=== PATIENT | male | born 1985 | race African-American/Black ===

== ENCOUNTER 2018-01-18 17:02 | Inpatient (IN) | payer SELFPAY ==
[2018-01-18 18:14] LABS: Mean Corpuscular HGB CONC 31.5 g/dL (32.0-36.0); Mean Corpuscular Hemoglobin 27.9 pg (27.0-31.0); Mean Corpuscular Volume 88.5 fL (78.0-98.0); Mean Platelet Volume 9.3 fL (7.4-10.4); Platelet Count 138 thou/uL (130-400); RBC Distribution Width 14.2 % (11.5-14.5); Red Blood Cell (RBC) Count 6.11 mill/uL (4.70-6.10); White Blood Cell (WBC) Count 4.8 thou/uL (4.8-10.8)
--- NOTE | 2018-01-18 18:32 | RAD ---
CHEST ONE VIEW: 01/18/18 HISTORY: Chest pain. Dyspnea. FINDINGS: No comparison. The cardiac silhouette is magnified and enlarged. Pulmonary vasculature slightly engorged. Mediastinu m is midline. No lobar consolidation or evidence of pneumothorax. IMPRESSION: Cardiomegaly. Borderline pulmonary vascular congestion. POS: H
[2018-01-18 18:34] LABS: ALT (SGPT) 18 U/L (8-55); AST (SGOT) 19 U/L (5-34); Albumin 3.7 g/dL (3.5-5.0); Alkaline Phosphatase 79 U/L (40-150); Anion Gap 13 mmol/L (10-20); BUN (Urea Nitrogen) 12 mg/dL (8.9-20.6); Bilirubin, Total 0.9 mg/dL (0.2-1.2); CK (CPK) 90 U/L (30-200); Calc. Creatinine Clearance 0 mL/min (70-130); Carbon Dioxide 31 mmol/L (22-29); Chloride 102 mmol/L (98-107); Estimated GFR-MDRD 81; Globulin 3.4 g/dL (2.4-3.5); Glucose 85 mg/dL (70-105); Potassium 4.7 mmol/L (3.5-5.1); Protein, Total 7.1 g/dL (6.0-8.3); Sodium 141 mmol/L (136-145)
[2018-01-18 18:36] LABS: CKMB 2.6 ng/mL (0-6.6); Troponin I 0.012 ng/mL (< 0.028)
[2018-01-18 18:39] LABS: Band 5 % (5-11); Lymphocytes 17 % (21-51); MDiff Complete? YES; Monocytes 4 % (0-10); Neutrophil 73 % (42-75); PLT Morphology Comment Appears Adequate; Reactive Lymphocytes 1 % (0-10)
--- NOTE | 2018-01-18 20:36 | ULT ---
VENOUS DUPLEX SONOGRAM BILATERAL LOWER EXTREMITIES: 01/18/18 HISTORY: Bilateral leg pain and edema. FINDINGS: Each common femoral vein and greater saphenous junction were evaluated along with the femoral, deep f emoral, popliteal, and posterior tibial veins. On the left, the distal portion of the femoral vein an d posterior tibial vein were not well visualized. On the right, posterior tibial vein not well visual ized. Good color and spectral doppler flow throughout the visualized deep venous structures. IMPRESSION: No sonographic evidence of DVT within either lower extremity. POS: PEPPER
[2018-01-18] MEDS ORDERED: Furosemide 40 MG/4 ML VIAL SLOW IVP STA (22:13)
[2018-01-18] MEDS ORDERED: Ondansetron HCl/PF 4 MG/2 ML Vial IVP PRN (22:17)
[2018-01-18] MEDS ORDERED: Acetaminophen 325 MG TAB PO PRN (22:17)
[2018-01-18] MEDS ORDERED: Furosemide 40 MG/4 ML VIAL ONE (22:29)
[2018-01-18] MEDS ORDERED: Nitroglycerin 2% Ointment 1 INCH/1 GM Packet ONE (22:29)
[2018-01-18 23:09] LABS: Troponin I Less than 0.010 ng/mL (< 0.028)
[2018-01-18] MEDS: Nitroglycerin 2% Ointment 1 INCH/1 GM Packet TOP SCH (23:53)
--- NOTE | 2018-01-19 00:39 | HP ---
PRIMARY CARE PHYSICIAN: [place] call. CODE STATUS: FULL CODE. TIME OF EVALUATION: 10:15 p.m. CHIEF COMPLAINT: Shortness of breath. HISTORY OF PRESENT ILLNESS: This is a 32-year-old male patient with no significant past medical hist ory, not taking medication at home. Patient came to the hospital after having gradually worsening le g swelling and shortness of breath. The symptoms started for about 1 month now, no clear triggers, n o alleviating factors. Patient reported the shortness of breath is worsened with activity and improv ed with rest. Symptoms are reported as severe. Patient was also found to have high blood pressure i n the ER. REVIEW OF SYSTEMS: Constitutional: No fever or chills or generalized weakness. Respiratory: Patie nt has some cough. No sputum production. Shortness of breath as mentioned in the HPI. Cardiovascul ar: No chest pain, palpitations, shortness of breath. Gastrointestinal: No nausea, vomiting, diarr hea, or abdominal pain. PERITONEAL DIALYSIS REGISTERED NURSE: No dizziness, headache, or feeling lightheaded. Genitourinary: No bu rning on urination. Extremities: Bilateral leg swelling. All other systems were reviewed and are n egative except for the findings mentioned above. PAST MEDICAL HISTORY: Negative. SOCIAL HISTORY: Patient reported no alcohol, no drugs. No smoking history. PSYCHIATRIC HISTORY: No previous psychiatric history. FAMILY HISTORY: The patient had father with CHF, hypertension, diabetes, mother with PSVT. DRUG ALLERGIES: No known drug allergies. REPORTED MEDICATIONS: None. PHYSICAL EXAMINATION: VITAL SIGNS: On presentation, blood pressure 157/103 with heart rate 98, respiratory rate was 26, te mperature 98.7, oxygen saturation 91. GENERAL APPEARANCE: The patient is alert, oriented, not in any acute distress. HEENT: Normocephalic, conjunctivae. Moist oral mucosa. Anicteric. NECK: No JVD. RESPIRATORY: Bilateral air entry. Bilateral rales. No wheezing. Symmetric expansion. CARDIOVASCULAR: Patient has normal rate, regular rhythm. No murmurs, no gallop. Bilateral leg ronnie a with atrophic changes in both legs. ABDOMEN: Soft. Normal bowel sounds. MUSCULOSKELETAL: Baseline range of motion and strength. No tenderness. SKIN: Warm and intact. No pallor, no rash, no redness. Peripheral pulses are present. Capillary r efill seems to be intact. NEUROLOGIC: Baseline sensory. No evidence of any new focal weakness. Baseline speech. Cranial ner ves seem to be intact. PSYCHIATRIC: Patient is in good mood. No anxiety, oriented. No optimal judgment. IMAGING: EKG was reviewed and showed normal sinus rhythm with nonspecific T-wave abnormalities. Toni tricular rate 99, CO 158, QRS 106, QT corrected 487. No evidence of any acute ischemic event, regula r changes in V1-V3. EKG has been reviewed by myself. The chest x-ray was reviewed. Patient has car diomegaly, borderline pulmonary vascular congestion. The venogram was done. The patient has no sono graphic evidence of DVT in the lower extremities. LABORATORY: Reviewed. The patient has white count 4.8, hemoglobin 17, MCV 88, platelet count 138. Chemistry: Sodium 141, potassium 4.7, chloride 102, carbon dioxide 31, anion gap 13, BUN 12, creatin ine 1.06, GFR 81, glucose 85, calcium 9.0. AST, ALT was negative. Troponin has been negative x2. B eta natriuretic peptide 234. Serum total protein 7.1. ASSESSMENT AND PLAN: The patient will be placed in the hospital with following further medical probl em: 1. Possible new-onset congestive heart failure. Patient has bilateral leg edema, worsening shortnes s of breath. Chest x-ray positive for vascular congestion, elevated beta natriuretic peptide, patien t restarted on Lasix, nitro paste, we will continue the rest of medications for congestive heart fail ure as well as patient becomes more compensated. We will add LEONOR inhibitors, aspirin. 2. Uncontrolled hypertension, patient presenting with elevated blood pressure, he reported having no history of hypertension, we will reconcile medication has been started on LEONOR inhibitors, nitro past e, Lasix IV, since patient has never taken medication, we will add medications one by one. 3. Morbidly obese, advise loss weight. 4. Deep venous thrombosis prophylaxis. 5. Acute respiratory failure needing nasal cannula to keep saturation of 90.
[2018-01-19 01:35] LABS: Troponin I 0.014 ng/mL (< 0.028)
[2018-01-19 05:22] LABS: BUN (Urea Nitrogen) 12 mg/dL (8.9-20.6); Calc. Creatinine Clearance 271 mL/min (70-130); Calcium 9.7 mg/dL (7.8-10.44); Estimated GFR-MDRD 81; Glucose 109 mg/dL (70-105)
[2018-01-19] MEDS: Nitroglycerin 2% Ointment 1 INCH/1 GM Packet TOP SCH ×4 (05:24→22:26)
[2018-01-19] MEDS: Furosemide 40 MG/4 ML VIAL SLOW IVP SCH ×2 (05:25→13:27)
[2018-01-19 05:31] LABS: Anion Gap 10 mmol/L (10-20); Carbon Dioxide 39 mmol/L (22-29); Chloride 99 mmol/L (98-107); Potassium 4.8 mmol/L (3.5-5.1); Sodium 143 mmol/L (136-145)
[2018-01-19 06:41] LABS: Band 6 % (5-11); Eosinophils 1 % (0-10); Lymphocytes 23 % (21-51); MDiff Complete? YES; Mean Corpuscular HGB CONC 30.4 g/dL (32.0-36.0); Mean Corpuscular Hemoglobin 27.3 pg (27.0-31.0); Mean Corpuscular Volume 89.7 fL (78.0-98.0); Mean Platelet Volume 9.1 fL (7.4-10.4); Monocytes 16 % (0-10); Neutrophil 54 % (42-75); Platelet Count 141 thou/uL (130-400); RBC Distribution Width 14.3 % (11.5-14.5); Red Blood Cell (RBC) Count 6.22 mill/uL (4.70-6.10); White Blood Cell (WBC) Count 4.9 thou/uL (4.8-10.8)
[2018-01-19] MEDS: Enoxaparin Sodium 40 MG/0.4 ML SYRINGE SC SCH (08:57)
[2018-01-19] MEDS ORDERED: Lisinopril 20 MG TAB PO SCH (09:00)
--- NOTE | 2018-01-19 11:18 | CON-2 ---
DATE OF CONSULTATION: 01/19/2018 CHIEF COMPLAINT: Shortness of breath. HISTORY OF PRESENT ILLNESS: Patient is a 32-year-old -[place] male with no reported past medical history that presents after 2 months of worsening shortness of breath associated with back pain and lower extremity edema. He states the lower extremity edema is worse on the left and it does resolve overnight when he elevates his legs. The patient reports that, 2 years ago, he went to [place] and was able to walk all day long with no problem. However , over the last 2 months, he has now decreased his activity level to only being able to walk a short distance without being winded. Patient works as a warehouse manual labor worker and states that he had no problem completing his tasks up until 2 months ago. The patient had no other complaints today. PAST SURGICAL HISTORY: None reported. SOCIAL HISTORY: The patient reports social alcohol use every once in a while. No tobacco or drug history. FAMILY HISTORY: The patient's father had CHF, hypertension, and diabetes. The patient's mother has had some sort of heart disease as well as a stroke history. KNOWN ALLERGIES: No known drug allergies. REPORTED MEDICATIONS: None. REVIEW OF SYSTEMS: A 12-point review of systems was, otherwise, negative unless listed above in the HPI. PHYSICAL EXAMINATION: VITAL SIGNS: Blood pressure 183/127, temperature 98.2, pulse was 105, respirations were 30, oxygen saturation was 94% on room air. GENERAL APPEARANCE: The patient is alert and oriented, not in acute distress. He is an obese man. HEENT: Normocephalic, atraumatic. NECK: No JVD. RESPIRATORY: Decreased breath sounds, likely due to body habitus. No wheezing present. CARDIOVASCULAR: Distant heart sounds, normal rate and regular rhythm. No murmurs appreciated. Does have bilateral leg edema with chronic venous stasis changes to lower extremities. ABDOMEN: Soft, normal bowel sounds, and obese. MUSCULOSKELETAL: Full range of motion in all joints. No strength deficits. SKIN: Warm and dry. No pallor and no rash. Peripheral pulses could not be palpated well at lower extremities. NEUROLOGIC: No focal deficits. GCS of 15. Cranial nerves grossly intact. PSYCHIATRIC: No anxiety noted. The patient has good judgment and is agreeable to and is cooperative with exam. LABORATORY EVALUATION: White blood cell count 4.9, hemoglobin of 17.0, hematocrit 55.8, platelet count 141. Sodium of 143, potassium 4.8, chloride 99 , carbon dioxide 39, anion gap 10, BUN 12, creatinine 1.26, glucose 109, calcium 97. He has had troponins of less than 0.01 and 0.014 and brain natriuretic peptide of 224.7. RADIOGRAPHIC FINDINGS: The patient had a chest x-ray that showed cardiomegaly with borderline pulmonary vascular congestion and a lower extremity venogram that showed no sonographic evidence of DVT within either lower extremity. ASSESSMENT AND PLAN: 1. Likely new onset congestive heart failure. Unknown etiology. The patient is symptomatic with bilateral leg edema and worsening shortness of breath. Patient has an elevated BNP, although not impressively elevated. The patient was started on Lasix by the primary team with good response to his symptoms. He had a diuresis of 1550 mL overnight. The patient had an LEONOR inhibitor added and an aspirin as well. We will likely be starting a beta souleymane to help control his disease. We also have an echocardiogram pending at this time to see what the ejection fraction and to further determine type or if there is any congestive heart failure present. 2. Hypertension, no self-reported history. The patient states that he has never been to his physician and has no history of hypertension. The patient has been started on lisinopril. We have also added on a beta souleymane along with the diuretic use and we will titrate medications as needed. 3. Morbidly obese. The patient weighs 500 pounds. He said that he graduated high school at roughly 350 pounds. He has been advised that he lose weight. Otherwise, his chronic conditions will only continue to deteriorate. 4. Human immunodeficiency virus. The patient is not truthful about his diagnosis while his family is around. However, nurses have medication reconciliation found that he was on Genvoya at home, a triple therapy for human immunodeficiency virus. We will continue that at this time. 5. His deep venous thrombus prophylaxis currently is at Lovenox 40 mg subcu, that is not appropriate for his body habitus and we will be increasing his deep venous thrombosis prophylaxis. 6. Obesity hypoventilation syndrome. The patient likely does have a component of this, as he is a carbon dioxide retainer with carbon dioxide levels being 31 and 39 respectively. The patient will likely need supplemental oxygen and would benefit from oxygen at night, most likely as well as a sleep study as an outpatient. We will continue to give oxygen supplementation as needed. DISPOSITION: Stable. We will continue current plan of care and await the echo results. This patient was seen and examined with Dr. Wander Estrada, the Cardiology attending , and she is in agreement with this plan. PRESTON
[2018-01-19] MEDS ORDERED: hydrALAZINE 20 MG/ML VIAL SLOW IVP PRN (11:26)
--- NOTE | 2018-01-19 13:45 | EKG ---
Test Reason : Blood Pressure : / mmHG Vent. Rate : 099 BPM Atrial Rate : 099 BPM P-R Int : 158 ms QRS Dur : 106 ms QT Int : 380 ms P-R-T Axes : 062 -17 006 degrees QTc Int : 487 ms Normal sinus rhythm Nonspecific T wave abnormality Prolonged QT Abnormal ECG Confirmed by DENI LAUREN ([id number]), videotape editor GLO MATA ([id number]) on 01/19/2018 1:44:54 PM Referred By: Confirmed By:DENI LAUREN
--- NOTE | 2018-01-19 14:41 | ADD-CON ---
ADDENDUM: DATE OF ADMISSION: 01/18/2018 DATE OF CONSULTATION: 01/19/2018 Please refer to the notes already dictated by the Family Practice resident on the service, Dr. Oz Camarillo. HISTORY OF PRESENT ILLNESS: This is a very pleasant 32-year-old gentleman who has had no previous ca rdiac history. He does have morbid obesity. He presented to the hospital after complaining of some lower extremity edema and also some shortness of breath ongoing for the last couple of months. He wa s found to have significant hypertension and chest x-ray does show what appears to be some cardiomega ly. However, due to the large chest area, this may be just due to the distance from the actual films to the heart and may not be true cardiomegaly but given his symptoms, he certainly may have a decrea se in left ventricular systolic function. He did have some history in the past of a fall. There was some congestive heart failure, hypertension, diabetes. This gentleman does not have any history of diabetes that we are aware of, but does have significant hypertension that he was unaware of it and h as not been treated for in the past and he denies any chest pain. He just mainly complains of the sh ortness of breath and lower extremity edema. He remains very active. 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 For his past medical history, social history, family history, review of systems, and allergies, pleas e refer to the notes dictated by the Family Practice resident, Dr. Mi. We have discussed the polly e in detail and I would agree with his assessment and plan as he is outlined already. The EKG shows a sinus rhythm with no acute changes. He did have some mild tachycardia. IMPRESSION: 1. New onset congestive heart failure until proven otherwise, uncertain etiology. We will obtain th e echocardiogram. This was certainly give more insight into whether or not the ejection fraction is significantly compromised or whether or not this may be due to some other etiology such as the morbid obesity and the hypertension. His BNP was not significantly elevated, it was only 224. His cardiac enzymes are negative. I am uncertain exactly of the etiology of the edema. Certainly he has respon ded well to the diuretics. 2. Hypertension. This will definitely need to be brought under better control. He will need to hav e routine followup for the hypertension, which could be done by a primary care physician or a family practice physician if we do not have any Cardiology etiology of his lower extremity edema. At this t marcos, he has been placed on lisinopril and I will also start him on a beta souleymane to assist in loweri ng the blood pressure as well as the heart rate. 3. Morbid obesity. He will need to have a dietary consultation and will certainly need to get some of the weight off. 4. Some history of possible human immunodeficiency virus. Apparently, the family is unaware that th e patient may have human immunodeficiency virus. This is due to question by the nurses as they notic ed he was taking medications that for what appeared to be human immunodeficiency virus and apparently he did admit to having human immunodeficiency virus. PHYSICAL EXAMINATION: GENERAL: Reveals a morbidly obese gentleman. VITAL SIGNS: Blood pressure is 141/94, heart rate was 103, but regular. Respiratory rate was about 30-35. He is afebrile. HEENT: Shows the head to be normocephalic and atraumatic. Carotid pulses are present. CHEST: Clear to auscultation. I cannot hear any rales, rhonchi or wheezing at this time. CARDIOVASCULAR: Reveals a mild tachycardia, but no significant murmurs, heaves, thrills, bruits or r ubs. ABDOMEN: Morbid obesity. Unable to palpate any tenderness or masses. EXTREMITIES: Showed 1-2+ lower extremity edema, mainly 1+ apparently has improved since his admissio n with the diuresis. I believe the right lower extremity was more edematous than the left. Pulses a re present. NEUROLOGIC: The patient appears to be fully intact. At this time, we will continue the medications for the congestive heart failure as listed. 1. Congestive heart failure. 2. Hypertension. 3. Edema. 4. Morbid obesity. Further recommendations will depend on the echocardiogram. As noted by the resident, he has some hyp erventilation syndrome, perhaps and may need to have a sleep study done if he is able to comply with the prescription for the CPAP mask if indicated. Please note that he does have increased risk for DV Ts and will be placed on prophylactic Lovenox, but obviously this is somewhat too lower level for his morbid obesity of the 40 mg and this will be increased.
[2018-01-19] MEDS ORDERED: Carvedilol 3.125 MG TAB PO SCH (18:00)
--- NOTE | 2018-01-19 23:26 | PDOC.PN ---
- Subjective Encounter Start Date: 01/19/18 Encounter Start Time: 10:30 Patient seen and examined for new onset CHF. SOB improving. No new complaints. No overnight events - Objective Resuscitation Status: Resuscitation Status FULL:Full Resuscitation MAR Reviewed: Yes Vital Signs & Weight: Vital Signs (12 hours) Temp Pulse Resp BP Pulse Ox 01/19/18 19:27 93 L 01/19/18 19:25 99.7 F H 111 H 26 H 136/77 86 L 01/19/18 15:53 98.5 F 101 H 33 H 144/100 H 95 01/19/18 11:35 97.8 F 103 H 35 H 141/94 H 97 01/19/18 11:26 97 Weight Weight 496 lb 9.6 oz I&O: 01/18/18 01/19/18 01/20/18 06:59 06:59 06:59 Intake Total 450 960 Output Total 2000 1700 Balance -1550 -740 Result Diagrams: 01/19/18 04:36 01/19/18 04:36 EKG Reviewed by me: Yes (Tele SR) Phys Exam - Physical Examination Constitutional: NAD Respiratory: no wheezing, no rhonchi Scat rales at bases Cardiovascular: RRR, no rub no heaves/pulsations Gastrointestinal: soft, non-tender, no distention, positive bowel sounds Musculoskeletal: edema present Neurological: non-focal, moves all 4 limbs Psychiatric: A&O x 3 Dx/Plan - Plan DVT proph w/lovenox, DVT proph w/SCDs IMPRESSION: 1. SOB prob due to new onset CHF 2. Morbid Obesity BMI 57.4 3. ?IRIS 4. HTN 5. HIV / CKD 2 PLAN: Add fluid rest Cont diuresis Cont ACEI Await Echo Tele monitoring Review of Systems - Review of Systems Constitutional: negative: fever, chills, sweats, weakness, malaise, other Gastrointestinal: negative: Nausea, Vomiting, Abdominal Pain, Diarrhea, Constipation, Melena, Hematochezia, Other - Medications/Allergies Allergies/Adverse Reactions: Allergies Allergy/AdvReac Type Severity Reaction Status Date / Time No Known Drug Allergies Allergy Verified 01/19/18 00:02 Medications: Current Medications Acetaminophen (Tylenol) 650 mg PO Q4H PRN PRN Reason: Headache/Fever or Pain Aspirin (Aspirin Chewable) 81 mg PO DAILY [facility] Last Admin: 01/19/18 08:57 Dose: 81 mg Carvedilol (Coreg) 3.125 mg PO BID-[facility] Enoxaparin Sodium (Lovenox) 40 mg SC 0900 [facility] Last Admin: 01/19/18 08:57 Dose: 40 mg Furosemide (Lasix) 40 mg SLOW IVP 0600,1400 [facility] Last Admin: 01/19/18 13:27 Dose: 40 mg Hydralazine HCl (Apresoline) 10 mg SLOW IVP Q4H PRN PRN Reason: SBP Greater Than 180 Lisinopril (Zestril) 20 mg PO DAILY [facility] Last Admin: 01/19/18 08:57 Dose: 20 mg Nitroglycerin (Nitro-Bid 2% Ointment) 0.5 inch TOP 0430,1030,1630,2230 [facility] Last Admin: 01/19/18 22:26 Dose: 0.5 inch Ondansetron HCl (Zofran) 4 mg IVP Q6H PRN PRN Reason: Nausea/Vomiting Pneumococcal 13-Valent Conj Vacc (Prevnar) 0.5 ml IM .ONCE ONE Stop: 01/20/18 09:01
[2018-01-20] MEDS: Nitroglycerin 2% Ointment 1 INCH/1 GM Packet TOP SCH (05:39)
[2018-01-20] MEDS: Furosemide 40 MG/4 ML VIAL SLOW IVP SCH ×2 (05:40→16:46)
[2018-01-20] MEDS ORDERED: Carvedilol 3.125 MG TAB PO SCH (08:00)
--- NOTE | 2018-01-20 08:27 | PDOC.CTH ---
<Peggy Whitt - Last Filed: 01/20/18 08:24> Cardiology Progress Note - Subjective The pt seen and examined. No overnight events. No cardiac complaints. Per family, his BLE edema has been improving already with current medication treatment. - Objective Vital Signs Temp Pulse Resp BP Pulse Ox 01/20/18 07:38 98.3 F 103 H 17 139/97 H 98 01/20/18 04:32 94 L 01/20/18 04:28 98.4 F 115 H 28 H 121/73 79 L 01/20/18 03:13 94 L 01/20/18 00:00 98.3 F 105 H 20 137/92 H 95 01/19/18 23:52 109 H 20 Weight 493 lb 8 oz 01/19/18 01/20/18 01/21/18 06:59 06:59 06:59 Intake Total 450 1170 Output Total 2000 3050 Balance -1550 -1880 - Physical Examination General/Neuro: alert & oriented x3 Neck: no JVD present Heart: RRR Abdomen: soft Extremities: other: - Telemetry Telemetry Rhythm: SR 90-100s - Labs Result Diagrams: 01/19/18 04:36 01/19/18 04:36 Troponin/CKMB CK-MB (CK-2) 2.6 ng/mL (0-6.6) 01/18/18 17:23 Troponin I 0.014 ng/mL (< 0.028) 01/19/18 00:59 - Assessment/Plan 1. New onset CHF - SOB and edema have been improving with lasix 40mg IV BID, bblocker, and LEONOR. Cont. to monitor. 2. Tachycardia - increase Coreg from 3.125mg to 6.25mg BID and decrease Lisinopril from 20mg to 10mg qd. Cont. to monitor on tele 3. HTN - Improved 4. BLE edema - improving with Lasix 40mg IV BID. May change to PO form. 5. Morbid Obesity - weight management education given to the pt and family 6. Possible IRIS - may need sleep study as outpt. MAR reviewed Review of Systems - Review of Systems Constitutional: reports: no symptoms reported EENTM: reports: no symptoms reported Respiratory: reports: no symptoms reported Cardiac (ROS): reports: no symptoms reported ABD/GI: reports: no symptoms reported : reports: no symptoms reported Musculoskeletal: reports: no symptoms reported <Lizzette Estrada - Last Filed: 01/20/18 13:55> Cardiology Progress Note - Objective Vital Signs Temp Pulse Resp BP Pulse Ox 01/20/18 11:49 98.4 F 99 17 133/89 94 L 01/20/18 08:00 98.3 F 103 H 17 01/20/18 07:38 98.3 F 103 H 17 139/97 H 98 01/20/18 04:32 94 L 01/20/18 04:28 98.4 F 115 H 28 H 121/73 79 L 01/20/18 03:13 94 L Weight 493 lb 8 oz 01/19/18 01/20/18 01/21/18 06:59 06:59 06:59 Intake Total 450 1170 Output Total 1999 3050 Balance -1550 -1880 - Labs Result Diagrams: 01/19/18 04:36 01/20/18 10:37 Troponin/CKMB CK-MB (CK-2) 2.6 ng/mL (0-6.6) 01/18/18 17:23 Troponin I 0.014 ng/mL (< 0.028) 01/19/18 00:59 - Assessment/Plan Pt. seen and eval. by me. I agree with the A/P by the YARD PIPE GRADER. The echo indicates an EF of 45-50%. The RV appears dilated. The edema has improved. He continues to diurese. Chest clear. RRR. he needs to lose about 200 #. He says that he has back pain and can not walk very fart. I suggest he try water exercises.
[2018-01-20] MEDS ORDERED: Carvedilol 6.25 MG TAB PO SCH (08:30)
[2018-01-20] MEDS ORDERED: Prevnar 13-Val Conj/PF 0.5 ML SYRINGE IM ONE (09:00)
[2018-01-20] MEDS: Lisinopril 10 MG TAB PO SCH (09:18)
[2018-01-20] MEDS: Enoxaparin Sodium 40 MG/0.4 ML SYRINGE SC SCH (09:18)
[2018-01-20 11:04] LABS: BUN (Urea Nitrogen) 13 mg/dL (8.9-20.6); Calc. Creatinine Clearance 300 mL/min (70-130); Calcium 9.2 mg/dL (7.8-10.44); Estimated GFR-MDRD Greater than 90; Glucose 124 mg/dL (70-105); Magnesium 1.9 mg/dL (1.6-2.6)
[2018-01-20 11:14] LABS: Anion Gap 13 mmol/L (10-20); Carbon Dioxide 35 mmol/L (22-29); Chloride 94 mmol/L (98-107); Potassium 3.9 mmol/L (3.5-5.1); Sodium 138 mmol/L (136-145)
--- NOTE | 2018-01-20 13:23 | PDOC.PN ---
- Subjective Encounter Start Date: 01/20/18 Encounter Start Time: 10:30 Patient seen and examined for CHF. SOB improving. No new complaints. No overnight events - Objective Resuscitation Status: Resuscitation Status FULL:Full Resuscitation MAR Reviewed: Yes Vital Signs & Weight: Vital Signs (12 hours) Temp Pulse Resp BP Pulse Ox 01/20/18 11:49 98.4 F 99 17 133/89 94 L 01/20/18 08:00 98.3 F 103 H 17 01/20/18 07:38 98.3 F 103 H 17 139/97 H 98 01/20/18 04:32 94 L 01/20/18 04:28 98.4 F 115 H 28 H 121/73 79 L 01/20/18 03:13 94 L Weight Weight 493 lb 8 oz I&O: 01/19/18 01/20/18 01/21/18 06:59 06:59 06:59 Intake Total 450 1170 Output Total 1999 3050 Balance -1550 -1880 Result Diagrams: 01/19/18 04:36 01/20/18 10:37 EKG Reviewed by me: Yes (Tele SR) Phys Exam - Physical Examination Constitutional: NAD Respiratory: no wheezing, no rhonchi Cardiovascular: RRR, no rub Gastrointestinal: soft, positive bowel sounds Musculoskeletal: edema present Neurological: moves all 4 limbs Dx/Plan - Plan DVT proph w/lovenox, DVT proph w/SCDs IMPRESSION: 1. SOB prob due to new onset CHF 2. Morbid Obesity BMI 57.4 3. ?IRIS 4. HTN 5. HIV / CKD 2 / Chronic low back pain PLAN: Cont IV Lasix 40 BID Daily BMP Cont Lisinopril and Coreg Resume HIV meds Await Echo DC NTG patch Cont Autopap HS Sleep study as outpt Tele monitoring Review of Systems - Review of Systems Constitutional: negative: fever, chills, sweats, weakness, malaise, other Gastrointestinal: negative: Nausea, Vomiting, Abdominal Pain, Diarrhea, Constipation, Melena, Hematochezia, Other - Medications/Allergies Allergies/Adverse Reactions: Allergies Allergy/AdvReac Type Severity Reaction Status Date / Time No Known Drug Allergies Allergy Verified 01/19/18 00:02 Medications: Current Medications Acetaminophen (Tylenol) 650 mg PO Q4H PRN PRN Reason: Headache/Fever or Pain Aspirin (Aspirin Chewable) 81 mg PO DAILY [facility] Last Admin: 01/20/18 09:18 Dose: 81 mg Carvedilol (Coreg) 6.25 mg PO BID-[facility] Enoxaparin Sodium (Lovenox) 40 mg SC 0900 [facility] Last Admin: 01/20/18 09:18 Dose: 40 mg Furosemide (Lasix) 40 mg SLOW IVP 0600,1400 [facility] Last Admin: 01/20/18 05:40 Dose: 40 mg Hydralazine HCl (Apresoline) 10 mg SLOW IVP Q4H PRN PRN Reason: SBP Greater Than 180 Lisinopril (Zestril) 10 mg PO DAILY [facility] Last Admin: 01/20/18 09:18 Dose: 10 mg (Elviteg/Cob/Emtri/Tenof Alafen [ Genvoya Tablet] 1 Tab) 1 tab PO DAILY [facility] Ondansetron HCl (Zofran) 4 mg IVP Q6H PRN PRN Reason: Nausea/Vomiting
[2018-01-20] MEDS: Carvedilol 6.25 MG TAB PO SCH (16:47)
[2018-01-21 05:52] LABS: Hemoglobin 17.4 g/dL (14.0-18.0); Platelet Count 141 thou/uL (130-400)
[2018-01-21 06:07] LABS: Anion Gap 14 mmol/L (10-20); BUN (Urea Nitrogen) 14 mg/dL (8.9-20.6); Calc. Creatinine Clearance 339 mL/min (70-130); Calcium 9.5 mg/dL (7.8-10.44); Carbon Dioxide 31 mmol/L (22-29); Chloride 94 mmol/L (98-107); Estimated GFR-MDRD Greater than 90; Glucose 92 mg/dL (70-105); Magnesium 2.1 mg/dL (1.6-2.6); Potassium 5.2 mmol/L (3.5-5.1); Sodium 134 mmol/L (136-145)
[2018-01-21] MEDS: Furosemide 40 MG/4 ML VIAL SLOW IVP SCH ×2 (06:15→13:55)
[2018-01-21] MEDS ORDERED: (Elviteg/Cob/Emtri/Tenof Alafen [Genvoya Tablet] 1 TAB) PO SCH (09:00)
[2018-01-21] MEDS: Enoxaparin Sodium 40 MG/0.4 ML SYRINGE SC SCH (09:28)
[2018-01-21] MEDS: Carvedilol 6.25 MG TAB PO SCH ×2 (09:28→17:02)
[2018-01-21] MEDS: Lisinopril 10 MG TAB PO SCH (09:28)
--- NOTE | 2018-01-21 17:13 | PDOC.CTH ---
Cardiology Progress Note - Subjective He is doing better. He is on room air and O2 sats are in the mid 70's. - Objective Vital Signs Temp Pulse Pulse Pulse Resp BP BP 01/21/18 17:02 132/74 01/21/18 16:10 16 01/21/18 15:38 98.1 F 92 18 01/21/18 11:21 98.3 F 99 14 01/21/18 09:37 103 H 103 H 132/97 H 01/21/18 08:26 98.3 F 92 14 BP BP BP Pulse Ox Pulse Ox Pulse Ox 01/21/18 17:02 01/21/18 16:10 97 01/21/18 15:38 116/59 L 92 L 01/21/18 11:21 119/62 99 01/21/18 09:37 127/91 H 94 L 92 L 01/21/18 08:26 132/92 H 95 Weight 493 lb 8 oz 01/20/18 01/21/18 01/22/18 06:59 06:59 06:59 Intake Total 1170 480 Output Total 3050 2900 Balance -1880 -2420 - Physical Examination General/Neuro: alert & oriented x3, NAD Neck: no JVD present Lungs: unlabored respirations, other: (distant heart sounds. ) Heart: RRR Abdomen: NT/ND Extremities: + edema B (1+) - Telemetry Telemetry Rhythm: S Tach - Labs Result Diagrams: 01/21/18 04:55 01/21/18 04:55 Troponin/CKMB CK-MB (CK-2) 2.6 ng/mL (0-6.6) 01/18/18 17:23 Troponin I 0.014 ng/mL (< 0.028) 01/19/18 00:59 - Assessment/Plan 1. New onset CHF systolic. 2. Tachycardia 3. HTN . 4. Morbid Obesity 5. IRIS PLAN: - Continue IV lasix. - Continue BB, ACEI. - Continue Oxygen supplementation.
[2018-01-21 18:06] VITALS: BMI 55.3
--- NOTE | 2018-01-21 22:09 | PDOC.PN ---
- Subjective Encounter Start Date: 01/21/18 Encounter Start Time: 10:30 Patient seen and examined for CHF. No new complaints. No overnight events - Objective Resuscitation Status: Resuscitation Status FULL:Full Resuscitation MAR Reviewed: Yes Vital Signs & Weight: Vital Signs (12 hours) Temp Pulse Resp BP BP BP Pulse Ox 01/21/18 19:00 98.1 F 98 18 116/63 92 L 01/21/18 17:02 132/74 01/21/18 16:10 16 97 01/21/18 15:38 98.1 F 92 18 116/59 L 92 L 01/21/18 11:21 98.3 F 99 14 119/62 99 Weight Weight 479 lb I&O: 01/20/18 01/21/18 01/22/18 06:59 06:59 06:59 Intake Total 2542 759 3465 Output Total 3050 2900 1220 Balance -1880 -2420 -220 Result Diagrams: 01/21/18 04:55 01/21/18 04:55 EKG Reviewed by me: Yes (Tele SR) Phys Exam - Physical Examination Constitutional: NAD Respiratory: no wheezing, no rhonchi Bibasilar rales Cardiovascular: RRR, no rub Gastrointestinal: soft, positive bowel sounds Musculoskeletal: edema present Psychiatric: A&O x 3 Dx/Plan - Plan DVT proph w/SCDs IMPRESSION: 1. Acute systolic CHF 2. Morbid Obesity BMI 57.4 3. ?IRIS 4. HTN 5. HIV / CKD 2 / Chronic low back pain / Hyperkalemia PLAN: Cont diuresis BMP in AM Cont Lisinopril and Coreg Resume HIV meds Echo reviewed Cont Autopap HS Sleep study as outpt Review of Systems - Review of Systems Constitutional: negative: fever, chills, sweats, weakness, malaise, other Gastrointestinal: negative: Nausea, Vomiting, Abdominal Pain, Diarrhea, Constipation, Melena, Hematochezia, Other - Medications/Allergies Allergies/Adverse Reactions: Allergies Allergy/AdvReac Type Severity Reaction Status Date / Time No Known Drug Allergies Allergy Verified 01/19/18 00:02 Medications: Current Medications Acetaminophen (Tylenol) 650 mg PO Q4H PRN PRN Reason: Headache/Fever or Pain Aspirin (Aspirin Chewable) 81 mg PO DAILY [facility] Last Admin: 01/21/18 09:28 Dose: 81 mg Carvedilol (Coreg) 6.25 mg PO BID-[facility] Last Admin: 01/21/18 17:02 Dose: 6.25 mg Enoxaparin Sodium (Lovenox) 40 mg SC 0900 [facility] Last Admin: 01/21/18 09:28 Dose: 40 mg Furosemide (Lasix) 40 mg SLOW IVP 0600,1400 [facility] Last Admin: 01/21/18 13:55 Dose: 40 mg Hydralazine HCl (Apresoline) 10 mg SLOW IVP Q4H PRN PRN Reason: SBP Greater Than 180 Lisinopril (Zestril) 10 mg PO DAILY [facility] Last Admin: 01/21/18 09:28 Dose: 10 mg (Elviteg/Cob/Emtri/Tenof Alafen [ Genvoya Tablet] 1 Tab) 1 tab PO DAILY [facility] Ondansetron HCl (Zofran) 4 mg IVP Q6H PRN PRN Reason: Nausea/Vomiting
[2018-01-22 05:46] LABS: Anion Gap 12 mmol/L (10-20); BUN (Urea Nitrogen) 19 mg/dL (8.9-20.6); Calc. Creatinine Clearance 310 mL/min (70-130); Calcium 9.7 mg/dL (7.8-10.44); Carbon Dioxide 36 mmol/L (22-29); Chloride 92 mmol/L (98-107); Estimated GFR-MDRD Greater than 90; Glucose 95 mg/dL (70-105); Potassium 4.4 mmol/L (3.5-5.1); Sodium 136 mmol/L (136-145)
[2018-01-22] MEDS: Furosemide 40 MG/4 ML VIAL SLOW IVP SCH ×2 (06:20→13:44)
[2018-01-22] MEDS: Lisinopril 10 MG TAB PO SCH (09:03)
[2018-01-22] MEDS: Carvedilol 6.25 MG TAB PO SCH ×2 (09:03→16:10)
[2018-01-22] MEDS: Enoxaparin Sodium 40 MG/0.4 ML SYRINGE SC SCH (09:04)
--- NOTE | 2018-01-22 11:43 | PDOC.PN ---
- Subjective Encounter Start Date: 01/22/18 Encounter Start Time: 10:30 Patient seen and examined for CHF exacerbation. Feeling better. No new complaints. Overnight events noted - Objective Resuscitation Status: Resuscitation Status FULL:Full Resuscitation MAR Reviewed: Yes Vital Signs & Weight: Vital Signs (12 hours) Temp Pulse Pulse Pulse Resp BP BP 01/22/18 09:03 129/79 01/22/18 08:30 98 101 H 136/86 01/22/18 07:35 98.3 F 89 16 01/22/18 03:31 98.1 F 92 18 01/22/18 02:47 16 BP BP BP Pulse Ox Pulse Ox Pulse Ox 01/22/18 09:03 01/22/18 08:30 124/79 92 L 95 01/22/18 07:35 131/81 91 L 01/22/18 03:31 123/84 93 L 01/22/18 02:47 91 L Weight Weight 479 lb I&O: 01/21/18 01/22/18 01/23/18 06:59 06:59 06:59 Intake Total 480 1240 Output Total 2900 1920 Balance -2420 -680 Result Diagrams: 01/21/18 04:55 01/22/18 04:30 EKG Reviewed by me: Yes (Tele SR) Phys Exam - Physical Examination Constitutional: NAD Respiratory: no wheezing, no rhonchi Bibasilar rales Cardiovascular: RRR, no rub Gastrointestinal: soft, non-tender, positive bowel sounds Musculoskeletal: edema present (improving) Neurological: moves all 4 limbs Dx/Plan - Plan out of bed/ambulate, DVT proph w/lovenox, DVT proph w/SCDs IMPRESSION/PLAN: 1. Acute systolic CHF - Wt 479 lb from 496 lb Cont Lasix 40 mg IV BID Cont Lisinopril/Coreg BMP in AM 2. Morbid Obesity BMI 57.4 Counselled 3. ?IRIS/Obesity hypoventilation syndrome Cont Autopap HS Add Cont pulse Ox Sleep study as outpt 4. HTN Cont Lisinopril/Coreg 5. HIV - Home med not in formulary - waiting for family to bring 6. CKD 2 / Chronic low back pain / Hyperkalemia Review of Systems - Review of Systems Respiratory: SOB with Excertion. negative: Cough, Dry, Shortness of Breath, Hemoptysis, Pleuritic Pain, Sputum, Wheezing Gastrointestinal: negative: Nausea, Vomiting, Abdominal Pain, Diarrhea, Constipation, Melena, Hematochezia, Other - Medications/Allergies Allergies/Adverse Reactions: Allergies Allergy/AdvReac Type Severity Reaction Status Date / Time No Known Drug Allergies Allergy Verified 01/19/18 00:02 Medications: Current Medications Acetaminophen (Tylenol) 650 mg PO Q4H PRN PRN Reason: Headache/Fever or Pain Aspirin (Aspirin Chewable) 81 mg PO DAILY [facility] Last Admin: 01/22/18 09:04 Dose: 81 mg Carvedilol (Coreg) 6.25 mg PO BID-[facility] Last Admin: 01/22/18 09:03 Dose: 6.25 mg Enoxaparin Sodium (Lovenox) 40 mg SC 0900 [facility] Last Admin: 01/22/18 09:04 Dose: 40 mg Furosemide (Lasix) 40 mg SLOW IVP 0600,1400 [facility] Last Admin: 01/22/18 06:20 Dose: 40 mg Hydralazine HCl (Apresoline) 10 mg SLOW IVP Q4H PRN PRN Reason: SBP Greater Than 180 Lisinopril (Zestril) 10 mg PO DAILY [facility] Last Admin: 01/22/18 09:03 Dose: 10 mg (Elviteg/Cob/Emtri/Tenof Alafen [ Genvoya Tablet] 1 Tab) 1 tab PO DAILY [facility] Ondansetron HCl (Zofran) 4 mg IVP Q6H PRN PRN Reason: Nausea/Vomiting
--- NOTE | 2018-01-22 17:09 | PDOC.CTH ---
Cardiology Progress Note - Subjective No new issues. Continues to desat without oxygen. - Objective Vital Signs Temp Pulse Pulse Pulse Resp BP BP 01/22/18 16:08 98.5 F 97 18 01/22/18 11:40 98.2 F 97 18 01/22/18 09:03 129/79 01/22/18 08:30 98 101 H 136/86 01/22/18 07:35 98.3 F 89 16 BP BP BP Pulse Ox Pulse Ox Pulse Ox 01/22/18 16:08 132/61 96 01/22/18 11:40 118/57 L 96 01/22/18 09:03 01/22/18 08:30 124/79 92 L 95 01/22/18 07:35 131/81 91 L Weight 479 lb 01/21/18 01/22/18 01/23/18 06:59 06:59 06:59 Intake Total 480 1240 Output Total 2900 1920 Balance -2420 -680 - Physical Examination General/Neuro: alert & oriented x3, NAD Neck: no JVD present Lungs: CTA, unlabored respirations Heart: RRR Abdomen: NT/ND Extremities: + edema B (1+) - Telemetry Telemetry Rhythm: NSR - Labs Result Diagrams: 01/21/18 04:55 01/22/18 04:30 Troponin/CKMB CK-MB (CK-2) 2.6 ng/mL (0-6.6) 01/18/18 17:23 Troponin I 0.014 ng/mL (< 0.028) 01/19/18 00:59 - Assessment/Plan 1. New onset CHF systolic. 2. Tachycardia 3. HTN . 4. Morbid Obesity 5. IRIS PLAN: - Switch to PO lasix. - Continue BB, ACEI. - Continue Oxygen supplementation, likely he will need home O2.
[2018-01-23 06:06] LABS: BUN (Urea Nitrogen) 19 mg/dL (8.9-20.6); Calc. Creatinine Clearance 280 mL/min (70-130); Calcium 9.7 mg/dL (7.8-10.44); Estimated GFR-MDRD 87; Glucose 101 mg/dL (70-105); Magnesium 2.1 mg/dL (1.6-2.6)
[2018-01-23 06:16] LABS: Anion Gap 15 mmol/L (10-20); Carbon Dioxide 37 mmol/L (22-29); Chloride 92 mmol/L (98-107); Potassium 4.3 mmol/L (3.5-5.1); Sodium 140 mmol/L (136-145)
[2018-01-23] MEDS ORDERED: Sodium Chloride 0.9% 10 ML ONE (08:02)
[2018-01-23] MEDS: Lisinopril 10 MG TAB PO SCH (09:00)
[2018-01-23] MEDS: Carvedilol 6.25 MG TAB PO SCH ×2 (09:00→16:09)
[2018-01-23] MEDS: Furosemide 40 MG TAB PO SCH ×2 (09:00→16:09)
[2018-01-23] MEDS: Enoxaparin Sodium 40 MG/0.4 ML SYRINGE SC SCH (09:01)
--- NOTE | 2018-01-23 22:09 | PDOC.PN ---
- Subjective Encounter Start Date: 01/23/18 Encounter Start Time: 09:00 Patient seen and examined for CHF exacerbation. No new complaints. No overnight events - Objective Resuscitation Status: Resuscitation Status FULL:Full Resuscitation MAR Reviewed: Yes Vital Signs & Weight: Vital Signs (12 hours) Temp Pulse Resp BP BP Pulse Ox 01/23/18 20:11 99.0 F 100 18 92 L 01/23/18 19:49 99.0 F 100 18 119/65 92 L 01/23/18 16:09 118/72 01/23/18 16:00 98.9 F 97 18 118/72 93 L 01/23/18 12:00 96.5 F L 96 18 107/58 L 94 L Weight Weight 480 lb 8 oz I&O: 01/22/18 01/23/18 01/24/18 06:59 06:59 06:59 Intake Total 1240 1360 1090 Output Total 1920 1650 975 Balance -680 -290 115 Result Diagrams: 01/21/18 04:55 01/23/18 04:45 EKG Reviewed by me: Yes (Tele SR) Phys Exam - Physical Examination Constitutional: NAD Respiratory: no wheezing, no rhonchi Bibasilar rales Cardiovascular: RRR, no rub Gastrointestinal: soft, positive bowel sounds Musculoskeletal: no edema Neurological: moves all 4 limbs Dx/Plan - Plan DVT proph w/lovenox, DVT proph w/SCDs IMPRESSION/PLAN: 1. Acute systolic CHF - Wt 480 lb from 496 lb Cont Lasix 40 mg PO BID Cont Lisinopril/Coreg BMP in AM 2. Morbid Obesity BMI 57.4 Counselled 3. ?IRIS/Obesity hypoventilation syndrome Cont Autopap HS Sleep study as outpt 4. HTN Cont Lisinopril/Coreg at current dose 5. HIV - Home med not in formulary - waiting for family to bring 6. CKD 2 / Chronic low back pain 7. Hyperkalemia - resolved Review of Systems - Review of Systems Respiratory: SOB with Excertion. negative: Cough, Dry, Shortness of Breath, Hemoptysis, Pleuritic Pain, Sputum, Wheezing Cardiovascular: negative: chest pain, palpitations, orthopnea, paroxysmal nocturnal dyspnea, edema, light headedness, other - Medications/Allergies Allergies/Adverse Reactions: Allergies Allergy/AdvReac Type Severity Reaction Status Date / Time No Known Drug Allergies Allergy Verified 01/19/18 00:02 Medications: Current Medications Acetaminophen (Tylenol) 650 mg PO Q4H PRN PRN Reason: Headache/Fever or Pain Aspirin (Aspirin Chewable) 81 mg PO DAILY [facility] Last Admin: 01/23/18 09:00 Dose: 81 mg Carvedilol (Coreg) 6.25 mg PO BID-[facility] Last Admin: 01/23/18 16:09 Dose: 6.25 mg Enoxaparin Sodium (Lovenox) 40 mg SC 0900 [facility] Last Admin: 01/23/18 09:01 Dose: 40 mg Furosemide (Lasix) 40 mg PO 0900,1400 [facility] Last Admin: 01/23/18 16:09 Dose: 40 mg Hydralazine HCl (Apresoline) 10 mg SLOW IVP Q4H PRN PRN Reason: SBP Greater Than 180 Lisinopril (Zestril) 10 mg PO DAILY [facility] Last Admin: 01/23/18 09:00 Dose: 10 mg (Elviteg/Cob/Emtri/Tenof Alafen [ Genvoya Tablet] 1 Tab) 1 tab PO DAILY [facility] Ondansetron HCl (Zofran) 4 mg IVP Q6H PRN PRN Reason: Nausea/Vomiting
[2018-01-24 07:48] LABS: Anion Gap 14 mmol/L (10-20); BUN (Urea Nitrogen) 18 mg/dL (8.9-20.6); Calc. Creatinine Clearance 302 mL/min (70-130); Calcium 9.8 mg/dL (7.8-10.44); Carbon Dioxide 37 mmol/L (22-29); Chloride 93 mmol/L (98-107); Estimated GFR-MDRD Greater than 90; Glucose 88 mg/dL (70-105); Potassium 4.3 mmol/L (3.5-5.1); Sodium 140 mmol/L (136-145)
[2018-01-24] MEDS: Enoxaparin Sodium 40 MG/0.4 ML SYRINGE SC SCH (08:38)
[2018-01-24] MEDS: Carvedilol 6.25 MG TAB PO SCH ×2 (08:38→16:53)
[2018-01-24] MEDS: Lisinopril 10 MG TAB PO SCH (08:39)
[2018-01-24] MEDS: Furosemide 40 MG TAB PO SCH ×2 (08:39→14:23)
--- NOTE | 2018-01-24 10:50 | PDOC.CTH ---
Cardiology Progress Note - Subjective Pt. seen and eval. He denies complaints.He is still SOB with exertion. I am suspicious that he may have suffered a pulmonary embolus. He is on Lovenox and may need detention OAC. - Objective Vital Signs Temp Pulse Resp BP BP Pulse Ox 01/24/18 08:39 141/80 H 01/24/18 08:38 141/80 H 01/24/18 07:29 97.5 F L 91 18 141/80 H 98 01/24/18 04:00 97.6 F 94 16 117/77 117 H Weight 478 lb 12.8 oz 01/23/18 01/24/18 01/25/18 06:59 06:59 06:59 Intake Total 1360 1570 Output Total 1650 1375 Balance -290 195 - Physical Examination General/Neuro: alert & oriented x3 Neck: no JVD present Lungs: CTA Heart: RRR Abdomen: other: (morbid obesity) Extremities: other: (edema improved. The left lower leg still has 1+ edema.) - Labs Result Diagrams: 01/21/18 04:55 01/24/18 06:18 Troponin/CKMB CK-MB (CK-2) 2.6 ng/mL (0-6.6) 01/18/18 17:23 Troponin I 0.014 ng/mL (< 0.028) 01/19/18 00:59 Labs: O/W CBC wnl, O/W BMP wnl, CKMB, troponin, no biomarkers today - Assessment/Plan 1. CHF: diastolic dysfunction. This may be related to his morbid obesity and sleep apnea. He has not been compliant with the CPAP mask that was tried. He also does not comply with PT. 2. morbid obesity. needs to lose more than 100#. 3. respiratory compromise. I am suspicious that he may have suffered a pulm. embolus at some recent time. The only possibility would be to try a V/Q scan to determine if there are obvious defects. He is too heavy for the CT scanner. I suggest he stay on chronic OAC. 4. Sleep Apnea. He has a CPAP mask here in the hospital but does not wear it as directed.
[2018-01-24 18:57] VITALS: BP 120/71; TEMP 98
--- NOTE | 2018-01-25 04:04 | DIS ---
DATE OF ADMISSION: 01/18/2018 DATE OF DISCHARGE: 01/24/2018 DISCHARGE DIAGNOSES: 1. Acute systolic congestive heart failure. 2. Morbid obesity. 3. Obstructive sleep apnea. 4. Hypoventilation obesity syndrome. 5. Hypertension. 6. Chronic kidney disease. 7. Hyperkalemia. HISTORY OF PRESENT ILLNESS: This patient is a 32-year-old male with significant morbid obesity who p resented with the complaint of progressive worsening shortness of breath and peripheral edema. Patie nt was noted to be hypoxic with exertion. He was noted to have cardiomegaly and some borderline pulm onary vascular congestion as well as peripheral edema on his physical exam. HOSPITAL COURSE: The patient was admitted to the hospital and started on IV diuresis. He was seen i n consultation by Cardiology and an echocardiogram was obtained. Echocardiogram was somewhat challen ging because of the patient's body habitus, but the interpretation is that the EF appeared to be at l east 45-50% and the left ventricle appeared to be dilated. The patient is diuresed well with the IV Lasix. He was placed on a beta souleymane, LEONOR inhibitor, supplemental oxygen and continued diuresis th at the patient's edema improved. His breathing improved and he was able to ambulate. He still had s ome mild hypoxia with exertion. Dr. Estrada, in followup, felt that the patient may have in fact had a recent pulmonary embolus accounting for some of his symptoms. However, given his body habitus, we we re unable to do the workup as he was too large for the imaging tables. It was recommended that the p atient remain on the anticoagulation for 3 months to treat it empirically. The patient himself felt that he had some type of lower back problem and when that was being aggravated, it was causing him to be more short of breath. He had made an appointment with a chiropractor and felt that if he can get that fixed that his shortness of breath would be substantially improved. PHYSICAL EXAMINATION: VITAL SIGNS: On the day of discharge, temperature is 98.1, pulse 92, BP 114/68, respirations 18. He is 93-96% O2 sat on room air. With exertion on room air, he did drop as low as 86, but recovered qu ickly with rest back to the 90s. HEART: Regular rate and rhythm. LUNGS: Diminished. ABDOMEN: Benign. EXTREMITIES: Still appear to have some edema with some chronic skin changes due to chronic stasis, d ermatitis, and edema. The patient believes they appeared to be at his baseline normal. DISCHARGE INSTRUCTIONS: Disposition: The patient is eager to be discharged to home. We discussed o tonie at length. The patient does not have benefits to cover oxygen therapy; however, he has the opt ion to pursue that renting it. I discussed this with case management. They will make the patient aw are of the option and give him information so that he can pursue that. The patient felt like he was doing fairly well without it and was not sure he would pursue it. The patient was also counseled at length regarding the fact that his obesity is significantly negatively impacting his overall health a nd impacting his current admission situation as well. Activity level as tolerated, heart healthy t. He will be on Coreg 6.25 mg b.i.d., Lasix 40 mg daily, lisinopril 10 mg daily, potassium 10 mEq d aily, Eliquis 5 mg 2 p.o. b.i.d. for 7 days and 1 p.o. b.i.d. and continue his Genvoya tablets. Ilda ent is also strongly encouraged to establish with a PCP and he should follow up here should he have a ny problems prior to the time of establishing the PCP.
== END 2018-01-24 19:31 | disposition home or self-care (01) | DRG 291 ==
LOC: ERS 17:02 → 2SW 22:59 → OBSVTOIN 01-20 10:26 → 2NO 01-20 18:06
PROVIDERS: ADMIT Hospitalist; ATTEND Hospitalist
DX: I13.0 Hypertensive heart and chronic kidney disease with heart failure and stage 1 through stage 4 chronic kidney disease, or unspecified chronic kidney disease (principal); J96.00 Acute respiratory failure, unspecified whether with hypoxia or hypercapnia; I50.21 Acute systolic (congestive) heart failure; Z68.43 Body mass index [BMI] 50.0-59.9, adult; E66.2 Morbid (severe) obesity with alveolar hypoventilation; E87.5 Hyperkalemia; N18.2 Chronic kidney disease, stage 2 (mild); Z21 Asymptomatic human immunodeficiency virus [HIV] infection status; M54.5 Low back pain; G89.29 Other chronic pain; R00.0 Tachycardia, unspecified; Z83.3 Family history of diabetes mellitus; Z82.49 Family history of ischemic heart disease and other diseases of the circulatory system
CPT/HCPCS: 36415; 71045; 80048; 80053; 82550; 82553; 83735; 83880; 84484; 85014; 85018; 85025; 85049; 90471; 90670; 93005; 93306; 93798; 93970; 94660; 94760; 96374; A4216; G0009; J1650; J1940

== ENCOUNTER 2018-06-28 13:33 | Emergency (ER) | payer OTHER, SELFPAY ==
--- NOTE | 2018-06-28 14:31 | RAD ---
LUMBAR SPINE THREE VIEWS: History: Low back pain. FINDINGS: There are five lumbar type vertebrae. Pedicles are intact. Leftward convex rotatory scoliotic curvatu re. Reversal of the normal lordotic curvature on the frontal view. Disc space narrowing and gas disc phenomenon at the L3-4 and L4-5 levels. Minimal degenerative retrolisthesis at these levels. Prominen t osteophytosis of the lower facets. Minimal anterior wedging of T12 with appearance of a chronic pro cess. IMPRESSION: Prominent degenerative changes of the lumbar spine. No acute compression fracture demonstrated. POS: [facility]
[2018-06-28 14:58] LABS: Mean Corpuscular HGB CONC 29.7 g/dL (32.0-36.0); Mean Corpuscular Hemoglobin 27.2 pg (27.0-31.0); Mean Corpuscular Volume 91.7 fL (78.0-98.0); Mean Platelet Volume 9.8 fL (7.4-10.4); Platelet Count 151 thou/uL (130-400); RBC Distribution Width 15.1 % (11.5-14.5); Red Blood Cell (RBC) Count 6.63 mill/uL (4.70-6.10); White Blood Cell (WBC) Count 6.9 thou/uL (4.8-10.8)
[2018-06-28 15:07] LABS: ALT (SGPT) 22 U/L (8-55); AST (SGOT) 27 U/L (5-34); Albumin 3.9 g/dL (3.5-5.0); Alkaline Phosphatase 93 U/L (40-150); Anion Gap 15 mmol/L (10-20); BUN (Urea Nitrogen) 16 mg/dL (8.9-20.6); Bilirubin, Total 1.3 mg/dL (0.2-1.2); Calc. Creatinine Clearance 0 mL/min (70-130); Calcium 9.4 mg/dL (7.8-10.44); Carbon Dioxide 29 mmol/L (22-29); Chloride 101 mmol/L (98-107); Estimated GFR-MDRD 84; Globulin 3.7 g/dL (2.4-3.5); Glucose 90 mg/dL (70-105); Potassium 4.7 mmol/L (3.5-5.1); Protein, Total 7.6 g/dL (6.0-8.3); Sodium 140 mmol/L (136-145)
[2018-06-28 15:08] LABS: Anisocytosis SLIGHT = 6-15 cells (100X) (0-5/hpf); Band 2 % (5-11); Lymphocytes 13 % (21-51); MDiff Complete? YES; Monocytes 8 % (0-10); Neutrophil 74 % (42-75); Platelet Morphology Comment Appears Adequate; Poikilocytosis SLIGHT = 6-15 cells (100X) (0-5/hpf); Reactive Lymphocytes 3 % (0-10)
--- NOTE | 2018-06-28 15:47 | RAD ---
CHEST 1 VIEW: Date: 06/28/18 HISTORY: Chest pain. Syncope. COMPARISON: 01/18/18. FINDINGS: Motion artifact obscures detail. Cardiac silhouette is magnified and enlarged. Pulmonary vasculature is engorged. No lobar consolidation or gross pneumothorax. IMPRESSION: Cardiomegaly and borderline pulmonary vascular congestion. Stable compared to the prior exam. POS: [facility]
[2018-06-28] MEDS ORDERED: Ibuprofen 800 MG TAB ONE (16:23)
== END 2018-06-28 16:27 | disposition home or self-care (01) ==
LOC: ERS 13:33
DX: M54.5 Low back pain (principal); I11.0 Hypertensive heart disease with heart failure; I50.9 Heart failure, unspecified; R55 Syncope and collapse; Z79.891 Long term (current) use of opiate analgesic; Z79.899 Other long term (current) drug therapy; W18.30XA Fall on same level, unspecified, initial encounter
CPT/HCPCS: 36415; 71045; 72100; 80053; 83880; 84484; 85025; 93005; 94760

== ENCOUNTER 2018-07-12 13:48 | Inpatient (IN) | payer OTHER, SELFPAY ==
[2018-07-12] MEDS ORDERED: Nitroglycerin 2% Ointment 1 INCH/1 GM Packet ONE (14:11)
[2018-07-12] MEDS ORDERED: Furosemide 40 MG/4 ML VIAL ONE (14:11)
[2018-07-12 14:21] LABS: #Basophils 0.1 thou/uL (0.0-0.2); #Lymphocytes 1.2 thou/uL (1.20-3.40); #Monocytes 0.6 thou/uL (0.11-0.59); #Neutrophils 2.8 thou/uL (1.40-6.50); %Basophils 1.3 % (0.0-1.0); %Eosinophils 0.6 % (0.0-10.0); %Monocytes 12.6 % (0.0-10.0); %Neutrophils 60.5 % (42.0-75.0); Hemoglobin 17.4 g/dL (14.0-18.0); Mean Corpuscular HGB CONC 29.5 g/dL (32.0-36.0); Mean Corpuscular Hemoglobin 26.6 pg (27.0-31.0); Mean Corpuscular Volume 90.2 fL (78.0-98.0); Mean Platelet Volume 10.2 fL (7.4-10.4); Platelet Count 126 thou/uL (130-400); RBC Distribution Width 14.9 % (11.5-14.5); Red Blood Cell (RBC) Count 6.52 mill/uL (4.70-6.10); White Blood Cell (WBC) Count 4.7 thou/uL (4.8-10.8)
[2018-07-12 14:49] LABS: ALT (SGPT) 19 U/L (8-55); AST (SGOT) 16 U/L (5-34); Albumin 3.8 g/dL (3.5-5.0); Alkaline Phosphatase 93 U/L (40-150); Anion Gap 11 mmol/L (10-20); BUN (Urea Nitrogen) 19 mg/dL (8.9-20.6); Bilirubin, Total 1.8 mg/dL (0.2-1.2); Calc. Creatinine Clearance 0 mL/min (70-130); Calcium 9.7 mg/dL (7.8-10.44); Carbon Dioxide 34 mmol/L (22-29); Chloride 99 mmol/L (98-107); Estimated GFR-MDRD 75; Globulin 3.4 g/dL (2.4-3.5); Glucose 156 mg/dL (70-105); Potassium 4.4 mmol/L (3.5-5.1); Protein, Total 7.2 g/dL (6.0-8.3); Sodium 140 mmol/L (136-145)
--- NOTE | 2018-07-12 15:12 | RAD ---
PORTABLE AP CHEST: Date: 07/12/18 HISTORY: Shortness of breath this morning. COMPARISON: 06/28/18. FINDINGS: The cardiac silhouette remains enlarged. Pulmonary vasculature is mildly increased. This exam is subo ptimal due to underpenetrated technique, which limits evaluation of the lung beverly. The increased de nsity overlying the lung base is thought to most likely be related to overlying soft tissue density. No definite pleural fluid is seen. IMPRESSION: 1. Limited exam, but there are findings suggestive of mild CHF, and chest is overall similar to the prior study. 2. Suboptimal evaluation of each lung base. POS: [facility]
--- NOTE | 2018-07-12 17:24 | PDOC.FPRHP ---
- History of Present Illness Chief Complaint: shortness of breath History of Present Illness: 32 yo obese AA male with pmhx of sCHF presents with shortness of breath and dyspnea on exertion, worsening over the past week. He endorses that while at work he can't walk the distances that he used to and he gets short of breath with lifting boxes. Last week, he carried a box to a car, and after that suddenly felt dizzy and passed out. After that, his left thigh started to hurt and got swollen. He came to the ER and was given some lasix and was discharged home. Since then he has been taking 80mg PO lasix daily. He endorses orthopnea, and lower extremity edema as well but denies PND. He also denies chest pain, palpitations, n/v/d. - Allergies/Adverse Reactions Allergies Allergy/AdvReac Type Severity Reaction Status Date / Time No Known Drug Allergies Allergy Verified 07/12/18 17:40 - Home Medications Medication Instructions Recorded Confirmed Type Elviteg/Cob/Emtri/Tenof Alafen 1 tab PO DAILY 01/19/18 07/12/18 History [Genvoya Tablet] Carvedilol [Coreg] 6.25 mg PO BID-WM #60 tab 01/24/18 07/12/18 Rx Lisinopril [Zestril] 10 mg PO DAILY #30 tab 01/24/18 07/12/18 Rx Potassium Chloride 10 meq PO DAILY #30 tab 01/24/18 07/12/18 Rx Furosemide [Lasix] 80 mg PO DAILY 07/12/18 07/12/18 History - History PMHx:sCHF, HIV, HTN, lower back pain PSHx: tonsillectomy/addenoidectomy FHx: father-CHF, ESRD, DM Social: denies smoking, alcohol, drug use - Review of Systems General: denies: fever/chills, weight/appetite/sleep changes ENT: denies: nasal congestion, rhinorrhea Respiratory: reports: shortness of breath, exercise intolerance. denies: cough , congestion Cardiovascular: reports: edema, orthopnea. denies: chest pain, palpitation, paroxysmal nocturnal dyspnea Gastrointestinal: denies: nausea, vomiting, diarrhea, abdominal pain Genitourinary: denies: incontinence, dysuria Skin: denies: rashes, lesions Musculoskeletal: reports: pain (right thigh), swelling (right thigh). denies: tenderness Neurological: denies: numbness, syncope Psychological: denies: anxiety, depression - Vital signs BP: 146/90 HR: 102 RR: 23 Tmax: 99 Pox: 97% on 4L Wt: 223kg - Physical Exam Constitutional: NAD, awake, alert and oriented HEENT: normocephalic and atraumatic, PERRLA, no scleral icterus, grossly normal vision, grossly normal hearing Heart: RRR, normal S1/S2, other (1+ pitting to mid soriano) Lungs: other (decreased breath sounds bilaterally) Abdomen: soft, non-tender, bowel sounds present, no masses/distention, other ( morbidly obese) Musculoskeletal: other (left thigh tightness, no erythema, nontender to palpation, mildly larger than right) Skin: no rash/lesions Psychiatric: normal mood and affect, good judgment and insight FMR H&P: Results - Labs Result Diagrams: 07/12/18 14:07 07/12/18 14:07 Lab results: WBC 4.7 thou/uL (4.8-10.8) L 07/12/18 14:07 Hgb 17.4 g/dL (14.0-18.0) 07/12/18 14:07 Hct 58.8 % (42.0-52.0) H 07/12/18 14:07 MCV 90.2 fL (78.0-98.0) 07/12/18 14:07 Plt Count 126 thou/uL (130-400) L 07/12/18 14:07 Neutrophils % 60.5 % (42.0-75.0) 07/12/18 14:07 Sodium 140 mmol/L (136-145) 07/12/18 14:07 Potassium 4.4 mmol/L (3.5-5.1) 07/12/18 14:07 Chloride 99 mmol/L (98-107) 07/12/18 14:07 Carbon Dioxide 34 mmol/L (22-29) H 07/12/18 14:07 BUN 19 mg/dL (8.9-20.6) 07/12/18 14:07 Creatinine 1.35 mg/dL (0.7-1.3) H 07/12/18 14:07 Glucose 156 mg/dL (70-105) H 07/12/18 14:07 Calcium 9.7 mg/dL (7.8-10.44) 07/12/18 14:07 Total Bilirubin 1.8 mg/dL (0.2-1.2) H 07/12/18 14:07 AST 16 U/L (5-34) 07/12/18 14:07 ALT 19 U/L (8-55) 07/12/18 14:07 Alkaline Phosphatase 93 U/L (40-150) 07/12/18 14:07 B-Natriuretic Peptide 570.0 pg/mL (0-100) H 07/12/18 14:07 Serum Total Protein 7.2 g/dL (6.0-8.3) 07/12/18 14:07 Albumin 3.8 g/dL (3.5-5.0) 07/12/18 14:07 - Radiology Interpretation Chest x-ray Status: image reviewed by me, report reviewed by me Additional comment: findings suggestive of mild CHF FMR H&P: A/P - Problem List (1) Systolic CHF with reduced left ventricular function, NYHA class 2 Current Visit: Yes Status: Acute Code(s): I50.20 - UNSPECIFIED SYSTOLIC ( CONGESTIVE) HEART FAILURE (2) HTN (hypertension) Current Visit: Yes Status: Acute Code(s): I10 - ESSENTIAL (PRIMARY) HYPERTENSION (3) HIV (human immunodeficiency virus infection) Current Visit: Yes Status: Acute Code(s): B20 - HUMAN IMMUNODEFICIENCY VIRUS [HIV] DISEASE (4) Morbid obesity Current Visit: Yes Status: Acute Code(s): E66.01 - MORBID (SEVERE) OBESITY DUE TO EXCESS CALORIES (5) Swelling of lower extremity Current Visit: Yes Status: Acute Code(s): M79.89 - OTHER SPECIFIED SOFT TISSUE DISORDERS (6) Obesity hypoventilation syndrome Current Visit: Yes Status: Acute Code(s): E66.2 - MORBID (SEVERE) OBESITY WITH ALVEOLAR HYPOVENTILATION (7) Tachycardia Current Visit: Yes Status: Acute Code(s): R00.0 - TACHYCARDIA, UNSPECIFIED - Plan 32 yo AA man with shortness of breath, admitted for an acute CHF exacerbation. #Acute CHF exacerbation- -tachycardic but not hypoxic, evidence of volume overload on physical exam, BNP , and CXR -given 80mg Lasix in the ER -Started on 80IV BID tomorrow -strict I/Os -will fluid restrict as well -echo in January showed reduced EF of 45-50%; no indication to repeat at this time -will order orthostatics as well d/t recent hx of syncope -flp in the am, repeat cmp, cbc, will check hba1c for elevated blood sugar on bmp as well #Tachycardia- -sinus tach -no leukocytosis -no source of infection -2/2 body habitus vs pulm embolus -pt wont fit in CT scanner, low threshold to treat for PE -complaint of lower extremity thigh swelling, ordered venous US #syncope- -cardiogenic vs orthostatic -will order orthostatics on patient -supsect relating to CHF -does not sound like s/s of a seizure #MAT -will monitor overnight #HTN -Will hold for now since pt has an MAT, restarted carvedilol, hydralazine prn sbp>180 #HIV -restarted on genvoya; denies this hx in front of family #Morbid Obesity -will consult dietitian for recommendations and counseling #lower extremity swelling- -ordered an ultrasound to rule out DVT; no s/s of infection -suspect pulled muscle from recent fall #Obesity hypoventilation syndrome- -cpap at night -monitor O2 sat -abg if increased respiratory distress DVT prophylaxis: lovenox DIet: FLuid restrict, heart healthy Code: full H. Serg Alva MD, PGY-2 Addendum - Attending - Attending Attestation Date/Time: 07/12/181938 I personally evaluated the patient and discussed the management with Dr. Ulrich. I agree with the History, Examination, Assessment and Plan documented above with any addition or exceptions noted below. Patient w history of sCHF here with worsening dyspnea, edema, and decreased activity tolerance. Labs and exam consistent with volume overload in setting of CHF. Also with syncopal episode that coukd be cardiogenic such as arrhythmia. Patient will be admitted to telemetry, strict i/o, diuresis and fluid restrict. Monitor rhythm. Will check LE doppler given history of possible PE, worsening symptoms, and lower leg swelling. Consider cardiology consult if not improving with standard measures.
[2018-07-12 17:37] VITALS: BMI 56.9
[2018-07-12] MEDS: Carvedilol 6.25 MG TAB PO SCH (17:53)
[2018-07-12 18:13] LABS: Troponin I 0.013 ng/mL (< 0.028)
--- NOTE | 2018-07-12 18:41 | ULT ---
ULTRASOUND WITH DOPPLER DUPLEX VENOUS LOWER EXTREMITY LEFT CPT: 29911 ICD-10-PCS: B54D HISTORY: Pain and edema. TECHNIQUE: Color flow Doppler, spectral waveform analysis of pulsed Doppler, and quijano-scale imaging with claudio pierre and augmentation, were used to evaluate the left common femoral, femoral, popliteal, posterior t ibial, and superficial femoral, veins; and the proximal portions of the profunda femoral and greater saphenous, veins. FINDINGS: Limited visualization due to body habitus. Within the limitations, there is no DVT identified within the imaged aspects of the left lower extremity. IMPRESSION: Markedly limited exam. No definite DVT within the imaged portion of the left lower extremity. Soft tissue edema. Correlate clinically. POS: [facility]
[2018-07-12] MEDS ORDERED: Apixaban 5 MG TAB PO SCH (21:00)
[2018-07-12 21:26] LABS: Troponin I 0.012 ng/mL (< 0.028)
[2018-07-13 05:32] LABS: Anion Gap 14 mmol/L (10-20); BUN (Urea Nitrogen) 17 mg/dL (8.9-20.6); Calc. Creatinine Clearance 271 mL/min (70-130); Calcium 9.9 mg/dL (7.8-10.44); Carbon Dioxide 33 mmol/L (22-29); Chloride 97 mmol/L (98-107); Estimated GFR-MDRD 82; Glucose 89 mg/dL (70-105); Potassium 4.7 mmol/L (3.5-5.1); Sodium 139 mmol/L (136-145)
[2018-07-13] MEDS: Furosemide 100 MG/10 ML VIAL SLOW IVP SCH ×2 (05:39→14:50)
[2018-07-13 05:47] LABS: Hemoglobin 17.5 g/dL (14.0-18.0); Mean Corpuscular HGB CONC 28.5 g/dL (32.0-36.0); Mean Corpuscular Volume 91.2 fL (78.0-98.0); Mean Platelet Volume 10.2 fL (7.4-10.4); Platelet Count 143 thou/uL (130-400); Red Blood Cell (RBC) Count 6.72 mill/uL (4.70-6.10); White Blood Cell (WBC) Count 5.1 thou/uL (4.8-10.8)
[2018-07-13] MEDS ORDERED: Furosemide 40 MG/4 ML VIAL SLOW IVP SCH (06:00)
[2018-07-13] MEDS ORDERED: hydrALAZINE 20 MG/ML VIAL SLOW IVP PRN (06:13)
[2018-07-13 06:41] LABS: Band 2 % (5-11); Lymphocytes 27 % (21-51); MDiff Complete? YES; Monocytes 16 % (0-10); Neutrophil 55 % (42-75)
--- NOTE | 2018-07-13 06:47 | PDOC.FM ---
- Subjective Subjective: Doing well this morning. Denies shortness of breath. Saturating well on 3L O2. - Objective MAR Reviewed: Yes Vital Signs & Weight: Vital Signs (12 hours) Temp Pulse Resp BP Pulse Ox 07/13/18 03:55 96.7 F L 92 22 H 138/83 95 07/12/18 20:35 97 07/12/18 19:35 98.5 F 93 16 141/86 H 97 Weight Weight 224.347 kg I&O: 07/11/18 07/12/18 07/13/18 06:59 06:59 06:59 Intake Total 300 Output Total 1700 Balance -1400 Result Diagrams: 07/13/18 04:48 07/13/18 04:48 Phys Exam - Physical Examination Constitutional: NAD HEENT: PERRLA, moist MMs Respiratory: no wheezing decreased breath sounds; mild crackles at the bases Cardiovascular: RRR, no significant murmur distant heart sounds Gastrointestinal: soft, non-tender, no distention Musculoskeletal: no edema, pulses present Neurological: non-focal, normal sensation Psychiatric: normal affect, A&O x 3 Skin: no rash Dx/Plan (1) Systolic CHF with reduced left ventricular function, NYHA class 2 Code(s): I50.20 - UNSPECIFIED SYSTOLIC (CONGESTIVE) HEART FAILURE Status: Acute (2) HTN (hypertension) Code(s): I10 - ESSENTIAL (PRIMARY) HYPERTENSION Status: Acute (3) HIV (human immunodeficiency virus infection) Code(s): B20 - HUMAN IMMUNODEFICIENCY VIRUS [HIV] DISEASE Status: Acute (4) Morbid obesity Code(s): E66.01 - MORBID (SEVERE) OBESITY DUE TO EXCESS CALORIES Status: Acute (5) Swelling of lower extremity Code(s): M79.89 - OTHER SPECIFIED SOFT TISSUE DISORDERS Status: Acute (6) Obesity hypoventilation syndrome Code(s): E66.2 - MORBID (SEVERE) OBESITY WITH ALVEOLAR HYPOVENTILATION Status : Acute (7) Tachycardia Code(s): R00.0 - TACHYCARDIA, UNSPECIFIED Status: Acute - Plan Plan: 32 yo AA man with shortness of breath, admitted for an acute CHF exacerbation. #Acute CHF exacerbation- -tachycardic but not hypoxic, evidence of volume overload on physical exam, BNP , and CXR -given 80mg Lasix in the ER -Started on 80IV BID today -strict I/Os; net I/O's -1.4L -Fluid restriction of 1500ml daily -echo in January showed reduced EF of 45-50%; no indication to repeat at this time -orthostatics pending -flp, hba1c pending -continue carvedilol, lisinopril, lasix, kcl -consider adding spironolactone #Tachycardia- -sinus tach, resolved -no leukocytosis -no source of infection -2/2 body habitus vs pulm embolus vs heart failure -pt wont fit in CT scanner, low threshold to treat for PE -complaint of lower extremity thigh swelling, ordered venous US which showed left thigh swelling however pt recently fell and this swelling could be due to soft tissue injury/muscle injury from the fall #syncope- -cardiogenic vs orthostatic -orthostatics pending -monitor on tele -supsect relating to CHF -does not sound like s/s of a seizure #MAT -will monitor overnight #HTN -Will restart lisinopril this am; MAT resolved. Continue carvedilol. Consider spironolactone vs amlodipine #HIV -restarted on genvoya; denies this hx in front of family -will order hep c and rpr; cd4 count and consider consulting Dr. Irby #Morbid Obesity -dietitian consult placed #lower extremity swelling- -showed soft tissue swelling #Obesity hypoventilation syndrome- -cpap at night -monitor O2 sat -abg if increased respiratory distress DVT prophylaxis: lovenox DIet: FLuid restrict, heart healthy Code: full H. Segr Alva MD, PGY-2
[2018-07-13 07:12] LABS: Hemoglobin A1c 6.4 % (4.0-6.0)
[2018-07-13 07:20] LABS: Cardiac Risk 5.1 (Less than 4.5)
--- NOTE | 2018-07-13 08:36 | RAD ---
CHEST 2 VIEWS: Date 07/13/18 HISTORY: Heart failure. COMPARISON: Radiograph dated 07/12/18. FINDINGS: Heart size enlarged. No pneumothorax. No effusion. IMPRESSION: Cardiomegaly and mild pulmonary venous congestion. POS: [facility]
[2018-07-13 08:50] LABS: Hep C IgG Ab Non-Reactive (NonReactive); Hep C Index 0.06 S/CO (0-0.79)
[2018-07-13 08:55] LABS: Syphilis Antibody Index 13.99 S/CO (<1.00 Non-Reactive)
[2018-07-13] MEDS ORDERED: (Elviteg/Cob/Emtri/Tenof Alafen [Genvoya Tablet] 1 TAB) PO SCH (09:00)
[2018-07-13] MEDS: Spironolactone 25 MG TAB PO SCH (09:14)
[2018-07-13] MEDS: Lisinopril 10 MG TAB PO SCH (09:15)
[2018-07-13] MEDS: Potassium Chloride 10 MEQ TAB PO SCH (09:16)
[2018-07-13] MEDS: Carvedilol 6.25 MG TAB PO SCH ×2 (09:16→17:10)
[2018-07-13] MEDS: Aspirin Chewable 81 MG TAB PO SCH (09:16)
[2018-07-13] MEDS: Enoxaparin Sodium 100 MG/ML SYRINGE SC SCH (09:16)
[2018-07-13 10:22] LABS: Syphilis Antibody INDETERMINATE (Nonreactive)
[2018-07-13] MEDS: Acetaminophen 325 MG TAB PO PRN ×2 (12:39→19:37)
[2018-07-14] MEDS: Furosemide 100 MG/10 ML VIAL SLOW IVP SCH ×2 (05:57→14:50)
--- NOTE | 2018-07-14 06:51 | PDOC.FM ---
- Subjective Subjective: Hypoxic at rest and with walking. Uninsured. Needs home oxygen and cpap at night. Feels fine with oxygen but short of breath without. States he saw Dr. Irby about one month ago. States he was treated for syphilis about 6 months ago and got one shot of PCN. States he takes the Genvoya daily. - Objective Vital Signs & Weight: Vital Signs (12 hours) Temp Pulse Resp BP Pulse Ox 07/14/18 05:21 95 07/14/18 04:00 96.8 F L 88 22 H 159/97 H 95 07/13/18 20:25 94 L 07/13/18 20:15 98.6 F 88 20 137/102 H 94 L Weight Weight 224.347 kg I&O: 07/12/18 07/13/18 07/14/18 06:59 06:59 06:59 Intake Total 300 1340 Output Total 1700 3100 Balance -1400 -1760 Result Diagrams: 07/13/18 04:48 07/13/18 04:48 Phys Exam - Physical Examination Constitutional: NAD HEENT: PERRLA, moist MMs Respiratory: no wheezing, no rales, clear to auscultation bilateral Cardiovascular: RRR, no significant murmur Gastrointestinal: soft, non-tender, no distention Musculoskeletal: no edema, pulses present Neurological: non-focal, normal sensation Psychiatric: normal affect, A&O x 3 Skin: no rash Dx/Plan (1) Acute and chronic respiratory failure with hypoxia Code(s): J96.21 - ACUTE AND CHRONIC RESPIRATORY FAILURE WITH HYPOXIA Status: Acute (2) Acute exacerbation of congestive heart failure Code(s): I50.9 - HEART FAILURE, UNSPECIFIED Status: Acute (3) Systolic CHF with reduced left ventricular function, NYHA class 2 Code(s): I50.20 - UNSPECIFIED SYSTOLIC (CONGESTIVE) HEART FAILURE Status: Acute (4) HTN (hypertension) Code(s): I10 - ESSENTIAL (PRIMARY) HYPERTENSION Status: Acute (5) HIV (human immunodeficiency virus infection) Code(s): B20 - HUMAN IMMUNODEFICIENCY VIRUS [HIV] DISEASE Status: Acute (6) Morbid obesity Code(s): E66.01 - MORBID (SEVERE) OBESITY DUE TO EXCESS CALORIES Status: Acute (7) Swelling of lower extremity Code(s): M79.89 - OTHER SPECIFIED SOFT TISSUE DISORDERS Status: Acute (8) Obesity hypoventilation syndrome Code(s): E66.2 - MORBID (SEVERE) OBESITY WITH ALVEOLAR HYPOVENTILATION Status : Acute (9) Tachycardia Code(s): R00.0 - TACHYCARDIA, UNSPECIFIED Status: Acute - Plan Plan: 32 yo AA man with shortness of breath, admitted for an acute CHF exacerbation. #Acute CHF exacerbation- #Acute on chronic hypoxic respiratory failure- -tachycardic with evidence of hypoxica overnight at rest and with walking; had evidence of volume overload on physical exam initially, BNP, and CXR -given 80mg Lasix in the ER -Continue 80IV BID today -strict I/Os; net I/O's -9000 with goal of net -1L -Fluid restriction of 1500ml daily -echo in January showed reduced EF of 45-50%; no indication to repeat at this time -continue carvedilol, lisinopril, lasix, kcl -consider adding spironolactone -pt needs home oxygen; will consult case management to assist #Pre-diabetes- -counseled on diet and exercise -recommend metformin if no improvement after three months #Hyperlipidemia- -will recommend diet/exercise and if no improvement recommend starting atorvastatin 40mg daily in 3 mo #Tachycardia- -resolved -no leukocytosis -no source of infection -2/2 body habitus vs pulm embolus vs heart failure -pt wont fit in CT scanner, low threshold to treat for PE -initia complaint of lower extremity thigh swelling, ordered venous US which showed left thigh swelling however pt recently fell and this swelling could be due to soft tissue injury/muscle injury from the fall #syncope- -cardiogenic vs orthostatic -monitor on tele -supsect relating to acute on chronic hypoxia 2/2 obesity hypoventilation syndrome and right sided heart failure -does not sound like s/s of a seizure #MAT -resolved #HTN -Will restart lisinopril this am; MAT resolved. Continue carvedilol. Will add amlodipine 5mg daily #HIV -restarted on genvoya; denies this hx in front of family -RPR 1:2 titer; prior hx of early latent s/p treatment and resolution of infection per pt; states he went to the health [facility] to be retested and they said he was cured. States he sees Dr. Irby regularly and obtains Genvoya prescription from Dr. Irby; cd4 count, HIV titer ordered and Dr. Irby consulted. #Morbid Obesity -dietitian consult placed #lower extremity swelling- -showed soft tissue swelling #Obesity hypoventilation syndrome- -cpap at night -monitor O2 sat -abg if increased respiratory distress DVT prophylaxis: lovenox DIet: FLuid restrict, heart healthy Code: full H. Serg Alva MD, PGY-2
[2018-07-14] MEDS: Lisinopril 10 MG TAB PO SCH (09:12)
[2018-07-14] MEDS: Aspirin Chewable 81 MG TAB PO SCH (09:12)
[2018-07-14] MEDS: Spironolactone 25 MG TAB PO SCH (09:12)
[2018-07-14] MEDS: Potassium Chloride 10 MEQ TAB PO SCH (09:13)
[2018-07-14] MEDS: Carvedilol 6.25 MG TAB PO SCH ×2 (09:13→17:50)
[2018-07-14] MEDS: Enoxaparin Sodium 100 MG/ML SYRINGE SC SCH (09:14)
--- NOTE | 2018-07-14 10:58 | PRG ---
DATE OF SERVICE: 07/14/2018 SUBJECTIVE: Mr. Lake is awake, alert, and a cheerful mood this morning. 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 He was given 1 injection of penicillin. He recently went [facility] for followup and was told that he was "cured." His low titer probably reflects the fact that he is zero fast. We have asked Dr. Irby to help follow up with his HIV medications as he already sees Dr. Irby as an outpatient. Anticipating possible discharge in a day or 2. We discussed all these issues with Mr. Lake. Job ID: [id number]
[2018-07-14 11:39] LABS: HIV (1/2) Antibody/Antigen Reflxed Confirmation (NonReactive); HIV 1/2 INDEX 355.67 S/CO (<1.00)
[2018-07-14] MEDS ORDERED: Bicillin LA 2.4 MILL.UNITS/4 ML SYRINGE IM SCH (11:45)
--- NOTE | 2018-07-14 14:33 | CON ---
DATE OF CONSULTATION: 07/14/2018 REASON FOR CONSULTATION: HIV infection with positive syphilis test. HISTORY OF PRESENT ILLNESS: A 32-year-old known to me from prior visits in the hospital and clinic, who has a history of morbid obesity, HIV still positive status with excellent adherence to anti-retroviral therapy with the last viral load undetectable few months ago, CD4 cell count around 280, who has sleep apnea with hypoventilation syndrome and the polycythemia as well as hypertension and previous episodes of CHF which required the hospital admission. The patient was brought in at this time with worsening dyspnea for the past week. The patient had been working and could not walk the distances that he used to do. He passed out after recent session at work and developed some pain in the left thigh with swelling. He was seen in the emergency room, given the intravenous Lasix and discharged home and has been on Lasix since. He did not have fever or chills. No headaches. No sore throat, odynophagia, or dysphagia. No vomiting. A little bit of cough, but no sputum production. No abdominal pain. No genitourinary symptoms. No skin disorder. PAST MEDICAL HISTORY: Morbid obesity, sleep apnea, cardiomyopathy, CHF, polycythemia, pulmonary embolism which is a presumptive diagnosis based on symptoms and clinical presentation without testing due to his weight. PAST SURGICAL HISTORY: Tonsillectomy. FAMILY HISTORY: ESRD, type 2 diabetes. SOCIAL HISTORY: Never smoker. He is unemployed. No alcoholic beverage use. Lives with family. CURRENT MEDICATIONS: 1. Aspirin. 2. Coreg. 3. Lovenox. 4. Lasix. 5. Apresoline. 6. Lisinopril. 7. Genvoya. 8. Bicillin L-A. 9. Aldactone. PHYSICAL EXAMINATION: VITAL SIGNS: T-max 98.8, blood pressure 140/70, pulse 108, respirations 20, O2 saturation 84% to 95% from time to time. SKIN: Not remarkable, areas of stasis dermatitis. No lymphadenopathy. Peripheral IV access is voiding in the urinal. His weight is 494 pounds. HEENT: Ocular movements conjugate. Nasal passages patent. Oral cavity normal. Numerous teeth in place in fairly decent shape. NECK: Supple. Positive jugular vein distention. LUNGS: Symmetric air entry. Faint basilar crackles. HEART: S1, S2 with diminished heart sounds. No obvious S3 or murmurs. ABDOMEN: Soft, not distended or tender. No ascites. No bladder distention. Very pronounced panniculus. EXTREMITIES: No joint inflammatory activity. He is able to move extremities, but he is diffusely weak. He has got 2+ edema in lower extremities. NEUROLOGIC: He is awake, oriented, follows commands. LABORATORY DATA: White cell count is 4.7 and 5.1, hemoglobin 17.5, hematocrit 61, platelet count 143, 55% neutrophils, 2% bands, 27% lymphocytes, 16% monocytes. The chemistry with a sodium 139, creatinine 1.25. On admission, his creatinine was 1.35. Cholesterol 228, albumin 3.8, globulin 3.4. BNP 570. The transaminases were within normal limits, bilirubin was 1.8, and alkaline phosphatase was normal. The patient had a chest x-ray, which demonstrated cardiomegaly and mild pulmonary venous congestion. ASSESSMENT: 1. Morbid obesity. 2. Human immunodeficiency viruses infection with excellent adherence to anti-retroviral therapy. CD4 last checked 280. 3. Positive syphilis test with low RPR titer with no history of prior syphilis treatment. 4. Polycythemia associated with a hypoventilation syndrome, likely sleep apnea with cardiomyopathy. DISCUSSION: Most likely the symptoms are related to his untreated sleep apnea, hypoventilation syndrome with polycythemia associated with it. The patient will need a formal evaluation for sleep apnea, will need a CPAP machine for nighttime use and may need also oxygen supplementation. Most likely will need oxygen supplementation to be used. It does not look like he would be able to continue working. I think he needs to apply for disability. The HIV and his positive syphilis tests were the least of his problems at this point in time and I would just continue Genvoya and give one injection of Bicillin L-A 2.4 million units in the hospital and two more in the outpatient setting after discharge, for a total of three injections of Bicillin L-A assuming a diagnosis of latent syphilis. Job ID: [id number] [facility]
[2018-07-14 15:20] LABS: %CD4 (Helper/Inducer) 16.9 % (30.8-58.5); Absolute CD4 186 /uL (359-1519); Lymphocytes/Gated Cell Count 1.1 x10E3/uL (0.7-3.1); Total Lymphocyte 25 % (Not Estab.); WBC Total Count 4.6 x10E3/uL (3.4-10.8)
[2018-07-14 16:24] VITALS: BP 117/90; TEMP 98
[2018-07-14] MEDS ORDERED: Atorvastatin Calcium 40 MG TAB PO SCH (21:00)
[2018-07-15 16:10] LABS: HIV 1 Antibody Multi-Spot Positive (Negative); HIV 2 Antibody Multi-Spot Negative (Negative); HIV Multi-spot Interp HIV-1 Positive (.)
[2018-07-16 23:07] LABS: HIV-1 Quantitative, RNA PCR <20 copies/mL (.)
== END 2018-07-14 20:25 | disposition home or self-care (01) | DRG 291 ==
LOC: ERS 13:48 → 2NO 15:56
PROVIDERS: ADMIT Student in an Organized Health Care Education/Training Program; ATTEND Student in an Organized Health Care Education/Training Program
DX: I11.0 Hypertensive heart disease with heart failure (principal); J96.21 Acute and chronic respiratory failure with hypoxia; I26.99 Other pulmonary embolism without acute cor pulmonale; N17.9 Acute kidney failure, unspecified; E66.2 Morbid (severe) obesity with alveolar hypoventilation; Z68.43 Body mass index [BMI] 50.0-59.9, adult; I50.23 Acute on chronic systolic (congestive) heart failure; Z21 Asymptomatic human immunodeficiency virus [HIV] infection status; I42.9 Cardiomyopathy, unspecified; A53.0 Latent syphilis, unspecified as early or late; R73.03 Prediabetes; E78.5 Hyperlipidemia, unspecified; M79.89 Other specified soft tissue disorders; Z79.899 Other long term (current) drug therapy
CPT/HCPCS: 36415; 71045; 71046; 80048; 80053; 80061; 83036; 83880; 84484; 85025; 85048; 86361; 86593; 86701; 86702; 86780; 86803; 87389; 87536; 90471; 90686; 93005; 93798; 96374; G0008; J0561; J1650; J1940